=== PATIENT | male | born 1950 | race Caucasian/White ===

== ENCOUNTER → 2017-06-03 | Outpatient (REF) | payer MEDICARE, OTHER ==
[2017-06-05 00:06] LABS: Lyme Disease IgG/IgM Antibodie <0.91 ISR (0.00-0.90); Lyme Disease IgM Ab Quantitati <0.80 index (0.00-0.79)
== END ==
LOC: M LAB REF 12:50
PROVIDERS: ATTEND Nurse Practitioner Adult Health
DX: N52.9 Male erectile dysfunction, unspecified (principal); E29.1 Testicular hypofunction; Z11.59 Encounter for screening for other viral diseases; E78.5 Hyperlipidemia, unspecified

== ENCOUNTER → 2017-09-12 | Outpatient (REF) | payer MEDICARE, OTHER ==
[2017-09-15 00:08] LABS: Lyme Disease IgG/IgM Antibodie <0.91 ISR (0.00-0.90); Lyme Disease IgM Ab Quantitati <0.80 index (0.00-0.79); TESTOSTERONE FREE (DIRECT) 10.6 pg/mL (6.6-18.1)
== END ==
LOC: M LAB REF 16:41
DX: N52.9 Male erectile dysfunction, unspecified (principal); Z11.8 Encounter for screening for other infectious and parasitic diseases
CPT/HCPCS: 84403

== ENCOUNTER → 2019-02-17 | Outpatient (REF) | payer MEDICARE, OTHER | LOC: M LAB REF 13:04 | PROVIDERS: ATTEND Nurse Practitioner Adult Health | DX: E29.1 Testicular hypofunction (principal) ==

== ENCOUNTER → 2019-09-01 | Outpatient (REF) | payer MEDICARE, OTHER ==
[2019-09-03 00:06] LABS: TESTOSTERONE FREE (DIRECT) 18.4 pg/mL (6.6-18.1)
== END ==
LOC: M LAB REF 12:21
PROVIDERS: ATTEND Nurse Practitioner Adult Health
DX: E29.1 Testicular hypofunction (principal)

== ENCOUNTER → 2020-01-07 | Outpatient (REF) | payer MEDICARE, OTHER | LOC: M LAB REF 14:14 | PROVIDERS: ATTEND Physician Assistant | DX: L82.1 Other seborrheic keratosis (principal) | CPT/HCPCS: 11102; 88305; G0463 ==

== ENCOUNTER → 2020-04-27 | Outpatient (CLI) | payer MEDICARE, BC, OTHER ==
--- NOTE | 2020-04-27 10:34 | REP ---
INDICATION: LT GROIN PAIN ? HERNIA COMPARISON: None. TECHNIQUE: Realtime grayscale ultrasound examination using linear high-frequency transducer. FINDINGS: Ultrasound examination of the bilateral groin/inguinal regions demonstrates no subcutaneous fluid collection, mass, or abnormality by sonographic evaluation. The bilateral inguinal canal appear normal. There is no evidence for hernia. IMPRESSION: Normal examination. No evidence for hernia. <Electronically signed by Nilesh Ambrose > 04/27/20 [id number]
== END ==
LOC: M RAD 09:41
PROVIDERS: ATTEND Surgery
DX: R10.32 Left lower quadrant pain (principal)

== ENCOUNTER → 2020-05-17 | Outpatient (REF) | payer MEDICARE, BC, OTHER | LOC: M LAB REF 12:18 | PROVIDERS: ATTEND Nurse Practitioner Adult Health | DX: E29.1 Testicular hypofunction (principal) ==

== ENCOUNTER → 2020-09-19 | Outpatient (CLI) | payer MEDICARE, BC, OTHER ==
--- NOTE | 2020-09-19 13:11 | REP ---
INDICATION: DIAGNOSING ABNORMAL FINDING OF LUNG R91.8. COMPARISON: Comparison CT studies of the chest are from August 25, 2020 and May 11, 2020.. TECHNIQUE: Forty-nine minutes following the intravenous injection of a 16.18 mCi dose of F-18 FDG, three-dimensional PET scintigraphy is acquired from the skull base to the proximal thighs. Triplanar noncontrast CT scanning is acquired through the same anatomic range for attenuation correction, and image registration with scan parameters optimized to minimize radiation exposure to the patient. PET scintigraphy and CT datasets were fused and displayed on a workstation with multiplanar and projection display capability. FINDINGS: Head and neck soft tissues are unremarkable. There is no abnormal hypermetabolic uptake within the thorax. No hussain uptake is seen in the hilar or mediastinal region. There is no visible FDG accumulation in any of the 3 noncalcified pulmonary nodules which were identified on recent chest CT. Maximum standard uptake value in the largest of these in the right lower lobe measures 1.16. No abnormal uptake in the chest. In the abdomen and pelvis there is normal distribution of FDG to the liver spleen, genitourinary, and gastrointestinal tract. No abnormal hypermetabolic uptake is seen. No discernible uptake is noted in the small benign right adrenal adenoma. The patient is post cholecystectomy. IMPRESSION: Negative PET scintigraphy. No abnormal hypermetabolic uptake is seen in the chest. Continued interval CT follow-up suggested. <Electronically signed by William Christopher > 09/19/20 [id number]
== END ==
LOC: M PLARAD 07:36
PROVIDERS: ATTEND Nurse Practitioner Adult Health
DX: R91.8 Other nonspecific abnormal finding of lung field (principal)
CPT/HCPCS: 78815; A9552

== ENCOUNTER → 2020-10-31 | Outpatient (REF) | payer MEDICARE, BC, OTHER ==
[2020-11-01 15:12] LABS: LDL DIRECT 72 mg/dL (0-99)
== END ==
LOC: M LAB REF 12:01
PROVIDERS: ATTEND Nurse Practitioner Adult Health
DX: E78.00 Pure hypercholesterolemia, unspecified (principal); Z20.828 Contact with and (suspected) exposure to other viral communicable diseases

== ENCOUNTER → 2021-05-22 | Outpatient (CLI) | payer MEDICARE, BC, OTHER ==
[~2021-05-22] MED LIST: PROHANCE 279.3MG/ML 15ML VIAL As Ordered ONE; PROHANCE 279.3MG/ML 5ML VIAL As Ordered ONE
--- NOTE | 2021-05-22 15:38 | REP ---
INDICATION: MASS OF RT FOOT. COMPARISON: Prior plain film examination 04/27/2021 from an outside institution was reviewed TECHNIQUE: Pre and post contrast 3T MRI of the right foot was performed utilizing various sequences. Gadolinium utilized: 16 cc ProHance FINDINGS: There is hypertrophic degenerative change seen involving the 2nd metatarsal phalangeal joint. There is collateral ligamentous hypertrophy and a slight joint effusion. The soft tissues along the medial and lateral margins of that joint and anterior to that joint are thickened and enhance. The thickening and enhancement is to a lesser degree along the plantar surface of that joint. There is asymmetric narrowing of the joint with marginal osteophytosis. There are no marginal erosions. Seen along the lateral margin of the head of the 2nd metatarsal there is a semi lunar shaped signal void which measures 0.6 x 0.3 by 0.3 cm. The imaged flexor and extensor tendons are intact and of normal appearing low signal throughout. The marrow signal of the diaphysis of the 2nd metatarsal is slightly increased on the most heavily T2 weighted images with slight T1 prolongation as well. This is seen involving the head of the 2nd metatarsal to a more subtle degree. There is subtle enhancement of the diaphyseal marrow as well. IMPRESSION: 1. There are chronic changes seen involving the 2nd metatarsal-phalangeal joint with soft tissue hypertrophic change, irregular joint space narrowing, marginal osteophytosis, and abnormal joint and periarticular fluid as described above. 2. There is a small calcific/ossific fragment adjacent to the head of the 2nd metatarsal possibly secondary to an old fracture as described above. 3. There is mild marrow edema involving the 2nd metatarsal, as described above, consistent with reactive edema from a stress related phenomena. <Electronically signed by Eliu Cerna > 05/22/21 [id number]
== END ==
LOC: M RAD 07:30
PROVIDERS: ATTEND Orthopaedic Surgery
DX: M79.671 Pain in right foot (principal); M19.071 Primary osteoarthritis, right ankle and foot
CPT/HCPCS: 73720; A9576

== ENCOUNTER 2021-10-11 10:01 | Emergency (ER) | payer MEDICARE, BC, OTHER ==
[~2021-10-11] VITALS: Ht 172.7 cm; Wt 81.8 kg
[2021-10-11] MEDS ORDERED: LISI10TA22 (10:05)
[2021-10-11] MEDS ORDERED: LEVO175T2 (10:05)
[2021-10-11] MEDS ORDERED: LIDOCAINE 2% 5ML JELLY UROJET TOP ONE (11:50)
[2021-10-11] MEDS ORDERED: FLOM0.4C39 PO (13:04)
[2021-10-11] MEDS ORDERED: TAMSULOSIN 0.4 MG CAP PO ONE (13:05)
[2021-10-11 13:20] VITALS: BP 131/64
== END 2021-10-11 13:39 | disposition home or self-care (01) ==
LOC: M ED 10:01
DX: R33.9 Retention of urine, unspecified (principal); R10.9 Unspecified abdominal pain; I10 Essential (primary) hypertension; Z79.899 Other long term (current) drug therapy; Z79.890 Hormone replacement therapy

== ENCOUNTER 2021-10-17 15:56 | Emergency (ER) | payer MEDICARE, BC, OTHER ==
[~2021-10-17] VITALS: Ht 172.7 cm; Wt 85.4 kg
[~2021-10-17 15:56] MED LIST changes: +FLOM0.4C39 PO; +LEVO175T2; +LISI10TA22; -PROHANCE 279.3MG/ML 15ML VIAL As Ordered ONE; -PROHANCE 279.3MG/ML 5ML VIAL As Ordered ONE
[2021-10-17] MEDS ORDERED: LIDOCAINE 2% 5ML JELLY UROJET TOP ONE (19:25)
[2021-10-17 20:13] VITALS: BP 138/66
== END 2021-10-17 20:34 | disposition home or self-care (01) ==
LOC: M ED 15:56
DX: R33.9 Retention of urine, unspecified (principal); N40.1 Benign prostatic hyperplasia with lower urinary tract symptoms; E03.9 Hypothyroidism, unspecified; Z79.899 Other long term (current) drug therapy; Z79.890 Hormone replacement therapy

== ENCOUNTER → 2022-11-16 | Outpatient (REF) | payer MEDICARE, BC, OTHER | LOC: M LAB REF 12:14 | PROVIDERS: ATTEND Nurse Practitioner Adult Health | DX: R97.20 Elevated prostate specific antigen [PSA] (principal) ==

== ENCOUNTER → 2023-10-17 | Outpatient (REF) | payer MEDICARE, OTHER | LOC: M LABWUC 17:11 → M LAB REF 17:11 | PROVIDERS: ATTEND Physician Assistant | DX: E29.1 Testicular hypofunction (principal) ==

== ENCOUNTER → 2024-01-07 | Outpatient (REF) | payer MEDICARE, OTHER | LOC: M LABWUC 16:21 | PROVIDERS: ATTEND Physician Assistant | DX: E29.1 Testicular hypofunction (principal) ==

== ENCOUNTER → 2024-01-27 | Outpatient (CLI) | payer MEDICARE, OTHER ==
[2024-01-27 14:52] LABS: BASO % 0.6 % (0.0-1.0); EOS # 0.9 10^3/uL (0.0-0.5); EOS % 13.4 % (0.0-3.0); HEMATOCRIT 41.7 % (42.0-52.0); HEMOGLOBIN 14.5 g/dl (13.5-17.5); LYMPH # 2.3 10^3/uL (1.5-5.0); MEAN CORPUSCULAR HEMOGLOBIN 31.1 pg (27.0-33.0); MEAN CORPUSCULAR HGB CONC 34.8 g/dl (32.0-36.5); MEAN CORPUSCULAR VOLUME 89.5 fl (80.0-96.0); MONO # 0.6 10^3/uL (0.0-0.8); MONO % 8.6 % (2.0-8.0); NEUTROPHILS # 2.8 10^3/uL (1.5-8.5); NEUTROPHILS % 42.1 % (36.0-66.0); PLATELET COUNT, AUTOMATED 147 10^3/uL (150-450); RED BLOOD COUNT 4.66 10^6/uL (4.30-6.10); WHITE BLOOD COUNT 6.6 10^3/uL (4.0-10.0)
[2024-01-27 15:20] LABS: PROSTATIC SPECIFIC AG MONITOR 0.67 NG/ML (< 4.00)
[2024-01-27 15:24] LABS: ALKALINE PHOSPHATASE 59 U/L (46-116); ALT/SGPT 26 U/L (7.0-40); AST/SGOT 18 U/L (<34); BILIRUBIN,TOTAL 0.6 MG/DL (0.3-1.2); BLOOD UREA NITROGEN 23 MG/DL (9-23); CALCIUM LEVEL 9.9 MG/DL (8.3-10.6); CARBON DIOXIDE LEVEL 28 MMOL/L (20-31); CHLORIDE LEVEL 106 MMOL/L (98-107); CREATININE FOR GFR 0.89 MG/DL (0.70-1.30); GLOMERULAR FILTRATION RATE > 60.0 (>42); GLUCOSE, FASTING 96 MG/DL (74-106); SODIUM LEVEL 141 MMOL/L (136-145); TOTAL PROTEIN 6.5 G/DL (5.7-8.2)
== END ==
LOC: M WUC 10:53
PROVIDERS: ATTEND Physician Assistant
DX: E29.1 Testicular hypofunction (principal); R97.20 Elevated prostate specific antigen [PSA]

== ENCOUNTER → 2024-02-11 | Outpatient (CLI) | payer MEDICARE, BC ==
[~2024-02-11] MED LIST changes: +GASTROGRAFIN SOLUTION 30ML As Ordered ONE; +ISOVUE-370 76% 100ML VIAL As Ordered ONE
== END ==
LOC: M RAD 09:42
PROVIDERS: ATTEND Nurse Practitioner Adult Health
DX: D44.10 Neoplasm of uncertain behavior of unspecified adrenal gland (principal); R91.1 Solitary pulmonary nodule
CPT/HCPCS: 71260; 74178; Q9963; Q9967

== ENCOUNTER → 2024-08-11 | Outpatient (CLI) | payer MEDICARE, BC ==
[~2024-08-11] MED LIST changes: -GASTROGRAFIN SOLUTION 30ML As Ordered ONE; -ISOVUE-370 76% 100ML VIAL As Ordered ONE
== END ==
LOC: M WUC 12:10
PROVIDERS: ATTEND Nurse Practitioner Adult Health
DX: M16.12 Unilateral primary osteoarthritis, left hip (principal); M47.816 Spondylosis without myelopathy or radiculopathy, lumbar region

== ENCOUNTER → 2024-08-27 | Outpatient (REF) | payer MEDICARE, BC | LOC: M LAB REF 16:08 | PROVIDERS: ATTEND Nurse Practitioner Adult Health | DX: L02.212 Cutaneous abscess of back [any part, except buttock and flank] (principal) ==

== ENCOUNTER → 2024-09-17 | Outpatient (REF) | payer MEDICARE, BC ==
[2024-09-17 14:54] LABS: HEMATOCRIT 46.3 % (42.0-52.0)
[2024-09-17 15:08] LABS: PERCENT SATURATION 26.3 % (19.7-50.0)
[2024-09-17 15:12] LABS: FERRITIN 544.3 NG/ML (10.5-307.3)
[2024-09-21 11:22] LABS: TRANSFERRIN 239 mg/dL (188-341)
== END ==
LOC: M LAB REF 12:36
PROVIDERS: ATTEND Nurse Practitioner Adult Health
DX: Z01.818 Encounter for other preprocedural examination (principal); M16.9 Osteoarthritis of hip, unspecified; E29.1 Testicular hypofunction; M25.552 Pain in left hip; N40.1 Benign prostatic hyperplasia with lower urinary tract symptoms

== ENCOUNTER → 2025-02-03 | Outpatient (CLI) | payer MEDICARE, BC ==
[~2025-02-03] MED LIST changes: -FLOM0.4C39 PO; +TAMS-18 PO
[2025-02-03 19:00] LABS: ALT/SGPT 22 U/L (7.0-40); AST/SGOT 21 U/L (<34); CALCIUM LEVEL 9.7 MG/DL (8.3-10.6); CARBON DIOXIDE LEVEL 25 MMOL/L (20-31); CHLORIDE LEVEL 103 MMOL/L (98-107); CREATININE FOR GFR 0.88 MG/DL (0.70-1.30); GLOMERULAR FILTRATION RATE > 90.0 (>42); POTASSIUM SERUM 4.2 MMOL/L (3.5-5.1); PSA SCREENING 0.87 NG/ML (< 4.00); SODIUM LEVEL 141 MMOL/L (136-145)
[2025-02-03 19:02] LABS: BASO # 0.0 10^3/uL (0.0-0.2); BASO % 0.6 % (0.0-1.0); EOS # 0.5 10^3/uL (0.0-0.5); EOS % 8.1 % (0.0-3.0); LYMPH # 1.8 10^3/uL (1.5-5.0); LYMPH % 27.4 % (24.0-44.0); MONO # 0.8 10^3/uL (0.0-0.8); MONO % 11.7 % (2.0-8.0); NEUTROPHILS # 3.5 10^3/uL (1.5-8.5); NEUTROPHILS % 52.1 % (36.0-66.0); PLATELET COUNT, AUTOMATED 146 10^3/uL (150-450)
== END ==
LOC: M WUC 14:07
PROVIDERS: ATTEND Physician Assistant
DX: E29.1 Testicular hypofunction (principal); Z12.5 Encounter for screening for malignant neoplasm of prostate
CPT/HCPCS: 36415; 80053; 84402; 84403; 85025; G0103

== ENCOUNTER → 2025-03-01 | Outpatient (CLI) | payer MEDICARE, BC ==
[2025-03-06 16:42] LABS: TESTOSTERONE FREE (DIRECT) 60.9 pg/mL (30.0-135.0); TESTOSTERONE TOTAL FOR T&D 438.0 ng/dL (250-1100)
== END ==
LOC: M WUC 09:36
PROVIDERS: ATTEND Specialist
DX: E29.1 Testicular hypofunction (principal)

== ENCOUNTER → 2025-06-10 | Outpatient (REF) | payer MEDICARE, OTHER ==
[2025-06-16 22:37] LABS: TESTOSTERONE FREE (DIRECT) 64.6 pg/mL (30.0-135.0); TESTOSTERONE TOTAL FOR T&D 475.0 ng/dL (250-1100)
== END ==
LOC: M LAB REF 12:24
PROVIDERS: ATTEND Nurse Practitioner Adult Health
DX: N40.1 Benign prostatic hyperplasia with lower urinary tract symptoms (principal); E29.1 Testicular hypofunction